=== PATIENT | female | born 1945 | race Caucasian/White ===

== ENCOUNTER 2024-04-05 12:43 | Day surgery (SDC) | payer MEDICARE, BC ==
[~2024-04-05] VITALS: Ht 160 cm; Wt 77.0 kg
[2024-04-05] VITALS (9 sets, daily range): BP systolic 119–178; BP diastolic 55–76; PULSE 67–90; RESP 12–15; TEMP 98.1; O2SAT 93–97
[2024-04-05] MEDS ORDERED: ceFAZolin 2,000MG in D5W 100mL IV ONE (13:15)
[2024-04-05] MEDS ORDERED: LIDOcaine 1% W/epiNEPHrine 1:100,000 20ml vial ONE (13:19)
[2024-04-05] MEDS ORDERED: midazolam 1 mg/ML 2ml injection ONE ×2 (13:19→14:02)
[2024-04-05] MEDS ORDERED: vancomycin 1,000mg inj ONE (13:19)
[2024-04-05] MEDS ORDERED: fentaNYL/PF 50MCG/1 ML 2ML syringe ONE (13:19)
[2024-04-05] MEDS ORDERED: HYDR25TA90 PO (13:23)
[2024-04-05] MEDS ORDERED: BUSP10TA3 PO (13:23)
[2024-04-05] MEDS ORDERED: CITA40TA16 PO (13:23)
[2024-04-05] MEDS ORDERED: DILT-35 PO (13:23)
[2024-04-05] MEDS ORDERED: METF-438 PO (13:23)
[2024-04-05] MEDS ORDERED: DIGO125T97 PO (13:23)
[2024-04-05] MEDS ORDERED: LANTUS SQ (13:23)
[2024-04-05] MEDS ORDERED: APIX5TAB3 PO (13:23)
[2024-04-05] MEDS ORDERED: ATOR40TA72 PO (13:23)
[2024-04-05] MEDS ORDERED: LOSA100T58 PO (13:23)
[2024-04-05] MEDS: VANCOMYCIN 1,500MG in NS 300 ML IVPB IV ONE (13:31)
[2024-04-05 13:40] LABS: BASOPHILS % (AUTO) 0.7 % (0-1); EOSINOPHILS # (AUTO) 0.1 X10'3 (0-0.9); EOSINOPHILS % (AUTO) 1.6 % (0-6); HEMOGLOBIN 12.6 g/dl (12.0-16.0); LYMPHOCYTES # (AUTO) 1.3 X10'3 (1.1-4.8); LYMPHOCYTES % (AUTO) 26.9 % (21-51); MEAN CORPUSCULAR HEMOGLOBIN 30.2 PG (27.0-31.0); MEAN CORPUSCULAR HGB CONC 33.2 g/dL (33.0-36.5); MEAN CORPUSCULAR VOLUME 91.1 FL (78-98); MEAN PLATELET VOLUME 8.4 FL (7.4-10.4); MONOCYTES # (AUTO) 0.7 X10'3 (0-0.9); MONOCYTES % (AUTO) 14.8 % (2-12); NEUTROPHILS # (AUTO) 2.6 X10'3 (1.8-7.7); PLATELET COUNT 189 X10'3 (140-440); RED BLOOD COUNT 4.17 X10'6 (4.20-5.60); RED CELL DISTRIBUTION WIDTH 14.1 % (11.5-14.5); WHITE BLOOD COUNT 4.6 X10'3 (4.5-11.0)
[2024-04-05 13:54] LABS: ALBUMIN 3.3 G/DL (3.4-5.0); ANION GAP 6 (8-16); BLOOD UREA NITROGEN 12 MG/DL (7-18); BUN/CREATININE RATIO 24.5 (10.0-20.0); CALCIUM 7.5 MG/DL (8.5-10.1); CHLORIDE 108 MMOL/L (99-107); CREATININE 0.49 MG/DL (0.40-0.90); GLUCOSE 93 MG/DL (70-104); MAGNESIUM 1.4 MG/DL (1.5-2.4); POTASSIUM 3.2 MMOL/L (3.5-5.1); SODIUM 139 MMOL/L (135-145); TOTAL CARBON DIOXIDE 24.6 MMOL/L (24-32); eCRCL 77 ML/MIN; eGFR > 90 ML/MIN
[2024-04-05] MEDS ORDERED: iohexol 350 MG/ML 50ML vial IV ONE (14:03)
[2024-04-05 14:36] LABS: PROTHROMBIN TIME 11.1 SECONDS (9.0-12.0)
[2024-04-05] MEDS ORDERED: normal saline 1000ml 1,000 ML IV SCH (15:30)
== END 2024-04-05 17:20 | disposition home or self-care (01) ==
LOC: SSTAY O 12:43
PROVIDERS: ATTEND Internal Medicine Cardiovascular Disease
DX: I49.5 Sick sinus syndrome (principal); I44.4 Left anterior fascicular block; I11.9 Hypertensive heart disease without heart failure; E78.5 Hyperlipidemia, unspecified; I48.19 Other persistent atrial fibrillation; I48.3 Typical atrial flutter; E11.39 Type 2 diabetes mellitus with other diabetic ophthalmic complication; Z82.3 Family history of stroke; Z82.5 Family history of asthma and other chronic lower respiratory diseases
CPT/HCPCS: 33207; 36415; 71045; 80048; 82948; 83735; 85025; 85610; 93005; 99152; 99153; A4565; C1786; C1898; J2250; J3010; J3370; J3490; J7030; J7040; Q9967; 33216